=== PATIENT | female | born 1990 | race Caucasian/White ===

== ENCOUNTER → 2023-11-17 07:08 | Outpatient (REF) | payer OTHER, SELFPAY | LOC: PNTC 07:08 | PROVIDERS: ATTENDING PHYSICIAN Obstetrics & Gynecology | DX: O98.519 Other viral diseases complicating pregnancy, unspecified trimester (principal); U07.1 COVID-19 | CPT/HCPCS: 76816 ==

== ENCOUNTER 2024-01-03 17:06 | Observation (INO) | payer OTHER, SELFPAY ==
[2024-01-03 17:38] VITALS: BP 107/58; BMI 26.1
[2024-01-03 17:45] LABS: % Basophils 0.4 % (0-2); % Eosinophils 1.2 % (0-6); % Immature Granulocytes 0.8 % (0-0.5); % Monocytes 7.5 % (1.7-9.3); % Neutrophils 67.1 % (42.2-75.2); Absolute Basophils 0.1 10^3/uL (0-0.2); Absolute Eosinophils 0.1 10^3/uL (0-0.7); Absolute Immature Granulocytes 0.1 10^3/uL (0-0.05); Absolute Lymphocytes 2.6 10^3/uL (1.2-3.4); Absolute Monocytes 0.9 10^3/uL (0.1-0.6); Absolute Neutrophils 7.6 10^3/uL (1.4-6.5); Hematocrit 32.6 % (37.0-47.0); Hemoglobin 11.3 g/dL (12.0-16.0); Mean Corp Hgb Conc. 34.7 g/dL (33.0-37.0); Mean Corpuscular Hgb 29.9 pg (27.0-31.0); Mean Corpuscular Volume 86.2 fL (81.0-99.0); Mean Platelet Volume 9.9 fL (7.4-10.4); Nucleated Red Blood Cells % 0 %; Platelet Count 282 10^3/uL (130-400); Red Blood Cell Count 3.78 10^6/uL (4.20-5.40); White Blood Cell Count 11.3 10^3/uL (4.8-10.8)
[2024-01-03 18:02] LABS: ALT (SGPT) 15 U/L (0-35); AST (SGOT) 25 U/L (14-36); Albumin 3.4 g/dl (3.5-5.0); Alkaline Phosphatase 131 U/L (38-126); Amylase 107 U/L (30-110); Blood Urea Nitrogen 5 mg/dl (7-17); Calcium 9.4 mg/dl (8.4-10.2); Carbon Dioxide 19 mmol/L (22-30); Chloride 108 mmol/L (98-107); Estimated Creatinine Clearance 117 ml/min; Glucose 114 mg/dl (70-99); Lipase 83 U/L (23-300); Sodium 133 mmol/L (135-145); Total Bilirubin 0.4 mg/dl (0.2-1.3); Total Protein 6.2 g/dl (6.3-8.2); eGFR > 60.00
[2024-01-03] MEDS: NSS (PRESERVATIVE FREE) 8 ML IV (18:33)
[2024-01-03] MEDS: PEPCID 20 MG IV (18:33)
== END 2024-01-03 19:41 | disposition home or self-care (01) ==
LOC: LDRP 17:06
PROVIDERS: ADMITTING PHYSICIAN Obstetrics & Gynecology
DX: O26.893 Other specified pregnancy related conditions, third trimester (principal); R10.13 Epigastric pain; Z3A.34 34 weeks gestation of pregnancy
CPT/HCPCS: 76700; 80053; 82150; 83690; 85025; G0378

== ENCOUNTER 2024-02-02 07:19 | Inpatient (IN) | payer OTHER, SELFPAY ==
[2024-02-02 07:34] VITALS: BMI 27.1
[2024-02-02 07:37] VITALS: BP 145/61
[2024-02-02 08:41] LABS: % Basophils 0.6 % (0-2); % Eosinophils 0.3 % (0-6); % Immature Granulocytes 0.6 % (0-0.5); % Lymphocytes 17.1 % (20.5-51.1); % Monocytes 6.2 % (1.7-9.3); % Neutrophils 75.2 % (42.2-75.2); Absolute Basophils 0.1 10^3/uL (0-0.2); Absolute Immature Granulocytes 0.1 10^3/uL (0-0.05); Absolute Lymphocytes 2.4 10^3/uL (1.2-3.4); Absolute Monocytes 0.9 10^3/uL (0.1-0.6); Absolute Neutrophils 10.5 10^3/uL (1.4-6.5); Hematocrit 36.4 % (37.0-47.0); Hemoglobin 12.7 g/dL (12.0-16.0); Mean Corp Hgb Conc. 34.9 g/dL (33.0-37.0); Mean Corpuscular Hgb 29.8 pg (27.0-31.0); Mean Corpuscular Volume 85.4 fL (81.0-99.0); Mean Platelet Volume 11.2 fL (7.4-10.4); Nucleated Red Blood Cells % 0 %; Platelet Count 246 10^3/uL (130-400); Red Blood Cell Count 4.26 10^6/uL (4.20-5.40); Red Cell Dist. Width 12.6 % (11.5-14.5)
[2024-02-02] MEDS: SUBLIMAZE 100 MCG EPIDURAL (08:59)
[2024-02-02] MEDS: FENTANYL/BUPIVACAINE 100 EPIDURAL ×2 (08:59→16:37)
[2024-02-02 09:08] LABS: Protein/creatinine Ratio 0.1; Urine Protein 17 mg/dl
[2024-02-02 10:59] LABS: ALT (SGPT) 14 U/L (0-35); AST (SGOT) 25 U/L (14-36); Albumin 3.5 g/dl (3.5-5.0); Alkaline Phosphatase 179 U/L (38-126); Blood Urea Nitrogen 8 mg/dl (7-17); Calcium 9.3 mg/dl (8.4-10.2); Carbon Dioxide 21 mmol/L (22-30); Chloride 106 mmol/L (98-107); Estimated Creatinine Clearance > 125 ml/min; Glucose 86 mg/dl (70-99); Sodium 134 mmol/L (135-145); Total Bilirubin 0.5 mg/dl (0.2-1.3); Total Protein 6.4 g/dl (6.3-8.2); eGFR > 60.00
[2024-02-03] MEDS: FENTANYL/BUPIVACAINE 100 EPIDURAL (00:13)
[2024-02-03] MEDS: LR 1000 IV (00:17)
[2024-02-03] MEDS: PITOCIN 30 UNITS/NSS 500 ML IV (03:07)
[2024-02-03] MEDS: MOTRIN 600 MG PO ×3 (04:56→17:20)
[2024-02-03] MEDS: SENOKOT-S 1 TABLET PO (08:16)
[2024-02-03] MEDS: PRENATAL PLUS 1 TABLET PO (08:16)
--- NOTE | 2024-02-04 03:20 | DOWNTIME ---
There was a [employer] Client [employer] Downtime on 02/03/2024 from 0100 to 02/04/2024 at 0300. Downtime documentation of patient's care, including medication administrations, has been reconciled in the electronic record per guidelines. Refer to the
patient's paper chart under the miscellaneous tab to see printed paper medication records and downtime forms.
[2024-02-04 04:48] LABS: Hematocrit 30.7 % (37.0-47.0); Hemoglobin 10.2 g/dL (12.0-16.0)
[2024-02-04] MEDS: PRENATAL PLUS 1 TABLET PO (09:08)
[2024-02-04] MEDS: FEOSOL 325 MG PO ×2 (09:08→19:51)
[2024-02-04] MEDS: SENOKOT-S 1 TABLET PO (09:09)
[2024-02-04] MEDS: MOTRIN 600 MG PO (19:56)
[2024-02-05] MEDS: SENOKOT-S 1 TABLET PO (08:29)
[2024-02-05] MEDS: PRENATAL PLUS 1 TABLET PO (08:29)
[2024-02-05] MEDS: FEOSOL 325 MG PO (08:29)
[2024-02-06 13:30] LABS: Syphilis/T. pallidum Ab Reflex Negative (Negative)
== END 2024-02-05 12:52 | disposition home or self-care (01) | DRG 807 ==
LOC: LDRP 07:19
PROVIDERS: ADMITTING PHYSICIAN Obstetrics & Gynecology
PROC: 10E0XZZ Delivery of Products of Conception, External Approach (ICD-10-PCS; 2024-02-03)
PROC: 0KQM0ZZ Repair Perineum Muscle, Open Approach (ICD-10-PCS; 2024-02-03)
DX: O70.1 Second degree perineal laceration during delivery (principal); Z37.0 Single live birth; O76 Abnormality in fetal heart rate and rhythm complicating labor and delivery; Z3A.39 39 weeks gestation of pregnancy
CPT/HCPCS: 36415; 80053; 82570; 84156; 85014; 85018; 85025; 86780; 86850; 86900; 86901

== ENCOUNTER 2024-02-26 13:18 | Day surgery (SDC) | payer OTHER, SELFPAY ==
[2024-02-26 13:41] VITALS: BP 102/68
--- NOTE | 2024-02-26 13:42 | ED.PDOC.TRB ---
ED Provider Triage
-
Patient seen by provider in Triage?: Seen in Triage
33-year-old female presenting emergency department for evaluation of bleeding. She had an uncomplicated vaginal delivery on February 02. She has had some mild bleeding since which seem to be getting better but this morning noticed a clot the
size of her hand. Back at her OBs office who advised her to come to the ER for further evaluation. She denies any other symptoms at this time. No thinners. Labs initiated. Patient is otherwise stable.
[2024-02-26 14:11] LABS: % Eosinophils 2.9 % (0-6); % Immature Granulocytes 0.1 % (0-0.5); % Lymphocytes 36.4 % (20.5-51.1); % Monocytes 6.5 % (1.7-9.3); % Neutrophils 53.1 % (42.2-75.2); Absolute Basophils 0.1 10^3/uL (0-0.2); Absolute Eosinophils 0.2 10^3/uL (0-0.7); Absolute Lymphocytes 2.9 10^3/uL (1.2-3.4); Absolute Monocytes 0.5 10^3/uL (0.1-0.6); Absolute Neutrophils 4.2 10^3/uL (1.4-6.5); Hematocrit 34.1 % (37.0-47.0); Hemoglobin 11.3 g/dL (12.0-16.0); Mean Corp Hgb Conc. 33.1 g/dL (33.0-37.0); Mean Corpuscular Hgb 29.3 pg (27.0-31.0); Mean Corpuscular Volume 88.3 fL (81.0-99.0); Mean Platelet Volume 9.5 fL (7.4-10.4); Nucleated Red Blood Cells % 0 %; Platelet Count 356 10^3/uL (130-400); Red Blood Cell Count 3.86 10^6/uL (4.20-5.40); Red Cell Dist. Width 12.8 % (11.5-14.5); White Blood Cell Count 7.9 10^3/uL (4.8-10.8)
[2024-02-26 14:19] LABS: Blood Urea Nitrogen 11 mg/dl (7-17); Calcium 9.3 mg/dl (8.4-10.2); Carbon Dioxide 22 mmol/L (22-30); Chloride 107 mmol/L (98-107); Glucose 93 mg/dl (70-99); Potassium 4.7 mmol/L (3.5-5.1); Sodium 138 mmol/L (135-145); eGFR > 60.00
[2024-02-26 18:17] VITALS: BP 102/66
[2024-02-26 18:21] LABS: Urine Albumin Trace (Neg - Trace); Urine Bilirubin 2+ (Negative); Urine Character Clear (Clear); Urine Glucose Negative (Negative); Urine Ketone Negative (Negative); Urine Leukocyte Negative (Negative); Urine Nitrite Positive (Negative); Urine Occult Blood Negative (Negative); Urine Specific Gravity 1.025 (<1.030); Urine Urobilinogen 3+ (Neg - 1+)
[2024-02-26 18:25] LABS: Urine Color Orange
[2024-02-26 18:42] LABS: Urine Calcium Oxalate Crystals Present; Urine Red Blood Cell 0-2 /HPF (0-2); Urine White Cell 0-2 /HPF (0-5)
--- NOTE | 2024-02-26 19:19 | ED.GENMED ---
History of Present Illness
General
Chief Complaint: Vaginal Bleeding
Time Seen by Provider: 02/26/24 15:09
Travel History
Have you had any contact with someone who has COVID-19?: No
Do you have any symptoms of coronavirus? Fever > 100 degrees, chills, cough, shortness of breath, sore throat, loss of taste or smell, muscle aches, or headache?: No
History of Present Illness
History of Present Illness:
33-year-old female presents the emergency department for evaluation of increased vaginal bleeding over the past 2 to 3 days with passage of blood clots. Patient , states bleeding had been improving up until the past 2 days but notes
increased physical activity. Denies any vaginal insertive intercourse. Denies any abdominal pain or fevers at this time
Review of Systems
Review of Systems
Allergies reviewed?: Yes
All Other Systems: ROS reviewed and negative except as documented in HPI and ROS
Phy Exam
Physical Exam
Physical Exam:
GEN: Well appearing, NAD, WDWN
HEENT: Oral mucosa moist, no scleral icterus
Cardiac: Regular rate
Lung: No respiratory distress, no tachypnea
MSK: No gross deformity or injuries
Skin: Good color, no pallor or jaundice, no rashes
Neuro: AO x3, moves all extremities freely
Psych: Calm, cooperative
Course
Orders/Labs/Results
Orders:
Orders
02/26/24 13:48
Basic Metabolic Panel Urgent
Beta HCG Quantitative Urgent
Is this a screen?: No
Complete Blood Count/With Diff Urgent
02/26/24 15:10
US Pelvis W Transvag Combined Urgent
Comment:
Reason For Exam: vaginal bleeding post
02/26/24 18:09
Consult [employer] [[employer] CONSULT] Urgent
Consulting Provider: Fabiano Peterson
Was physician already notified: Yes
02/26/24 18:11
Urinalysis Reflex To Culture Urgent
Date Specimen was Collected: 02/26/24
Time Specimen was Collected: 18:09
Urine Microscopic Reflex Cult Urgent
Urine Culture Urgent
JONO Source: U
Specimen Description:
Date Specimen was Collected: 02/26/24
Time Specimen was Collected: 18:09
02/26/24 19:03
Dexamethasone Sod Phosphate [Decadron] 20 mg .ROUTE .STK-MED ONE
Fentanyl Citrate/Pf [Sublimaze] 100 mcg .ROUTE .STK-MED ONE
Lidocaine 2% Mpf [Xylocaine Mpf 2%] 100 mg .ROUTE .STK-MED ONE
Midazolam HCl [Versed] 2 mg .ROUTE .STK-MED ONE
Ondansetron Injectable [Zofran] 4 mg .ROUTE .STK-MED ONE
Propofol [Diprivan] 20 ml .ROUTE .STK-MED
02/26/24 19:05
HYDROmorphone [Dilaudid] 0.25 mg IV PACU-Q5MPRN PRN
HYDROmorphone [Dilaudid] 0.5 mg IV PACU-Q5MPRN PRN
Meperidine [Demerol] 12.5 mg IV PACU-Q5MPRN PRN
Ondansetron Injectable [Zofran] 4 mg IV PACU-ONCEPRN PRN
Prochlorperazine [Compazine] 5 mg IV PACU-ONCEPRN PRN
02/26/24 19:06
Notify MD As Directed
Notify physician if: for SDS patients with known or suspected sleep obstructive sleep apnea, monitor in the
PACU.
Notify MD for any apneic/desaturation episodes
O2 Therapy [RESP] Urgent
Titrate/Wean O2 to maintain O2 sat greater than (%): 92
Special Instructions: -Provide supplemental oxygen to achieve O2 sat of 92% or greater.
-After 15 min, may wean O2 and discontinue if patient is able to maintain O2 sat of 92%
or greater during recovery period.
If patient is a discharge home, without oxygen therapy, notify anestheiologist if
unable to maintain O2 SAT of 92% or greater on room air for MD clearance.
02/26/24 19:12
Admit/Transfer Patient As Directed
Co-Sign Provider:
Level of Care: Observation services
Assign to:: Medical/Surgical
Physician / Group: Fabiano Peterson MD
Diagnosis: retianed POC
Foot pumps [Venous Foot Pumps] As Directed
Location: Bilateral feet
DX Deep Vein Thrombosis Video Routine
02/26/24 19:13
CeFAZolin 2 GRAM [Ancef] 2 grams in 10 ml IV PRE PROCEDURE
02/26/24 19:15
Normosol (Mult Electrolytes) [Normosol-R] 1,000 ml IV PER PROTOCOL
INT (Intravenous Needle Therapy) As Directed
Comment: maintain IV access 12 hr post delivery.Convert INT after infusions complete
02/26/24 19:19
CeFAZolin SODIUM [Ancef] 2,000 mg .ROUTE .STK-MED ONE
02/26/24 20:00
Lactated Ringers [Lr] 1,000 ml IV 125 mls/hr
02/27/24 Breakfast
NPO
Allow oral meds: Yes
Allow clear liquids: 4hrs prior to procedure
Comment: may have unrestricted clear liquid up to 4 hrs prior to scheduled procedure
Abnormal Lab Results
02/26/24 02/26/24
13:48 18:11
RBC 3.86 L 10^6/uL
(4.20-5.40)
Hgb 11.3 L g/dL
(12.0-16.0)
Hct 34.1 L %
(37.0-47.0)
Urine Nitrite (Reflex) Positive A
(Negative)
Urine Bilirubin 2+ A
(Negative)
Urine Urobilinogen 3+ A
(Neg - 1+)
02/26/24 13:48
02/26/24 13:48
Vital Signs
Initial and Last Documented VS:
Initial Vital Signs
Temp Pulse Resp BP Pulse Ox
98.1 F 83 18 102/68 97
02/26/24 13:41 02/26/24 13:41 02/26/24 13:41 02/26/24 13:41 02/26/24 13:41
Last Documented Vital Signs
Temp Pulse Resp BP Pulse Ox
97.2 F 79 20 112/67 99
02/26/24 20:50 02/26/24 20:07 02/26/24 20:07 02/26/24 20:07 02/26/24 20:07
MDM/Problems Addressed
MDM/Problems Addressed:
Ultrasound obtained showing suspicion for and products of conception. The patient is clinically stable and shows no signs of vaginal hemorrhage. Hemoglobin is stable. I discussed the case with [employer] on-call and they will take for operative
intervention
*Critical Care Note
Total Time (30-74mins, 75-104mins- exclusive of procedures): Not Applicable
ED Attending Note
-
Portions of this chart may have been created with voice recognition software.� Occasional wrong word or��sound alike� substitutions may have occurred due to the inherent limitations of voice recognition software.
Discharge Plan
Departure
Patient Disposition: Admit
Date of Disposition: 02/26/24
Time of Disposition: 19:19
Presentation/result/management discussed w/ accepting MD/DO: MAGI
Discharge Problem:
Retained products of conception after delivery with complications
Interventions
Interventions:
*Risk Screen - Suicide Last Done: 02/26/24 18:59
*General Assessment Last Done: 02/26/24 18:59
*Neglect/Abuse Screening Last Done: 02/26/24 18:59
*ED COVID-19 Vaccine History Last Done: 02/26/24 13:41
*Nursing Disposition Last Done: 02/26/24 19:39
ED-Female Genitourinary Assessment Last Done: 02/26/24 18:59
Discharge Date and Time
Discharge Date/Time: 02/26/24 19:39
[2024-02-26 20:07] VITALS: BP 102/66; BP 112/67
== END 2024-02-26 19:39 | disposition still patient (30) | DRG 769 ==
LOC: SDS 13:18
PROVIDERS: Obstetrics & Gynecology; Physician Assistant Medical; ATTENDING PHYSICIAN Emergency Medicine
PROC: 3E033VJ Introduction of Other Hormone into Peripheral Vein, Percutaneous Approach (ICD-10-PCS; 2024-02-26)
PROC: 10D17ZZ Extraction of Products of Conception, Retained, Via Natural or Artificial Opening (ICD-10-PCS; 2024-02-26)
PROC: 3E033GC Introduction of Other Therapeutic Substance into Peripheral Vein, Percutaneous Approach (ICD-10-PCS; 2024-02-26)
DX: O72.2 Delayed and secondary postpartum hemorrhage (principal)
CPT/HCPCS: 59160; 88305; 76830; 76856; 76942; 80048; 81003; 81015; 84702; 85025; 87086; 96374; 96375; 99284; G0378